=== PATIENT | female | born 1990 | race African-American/Black ===

== ENCOUNTER 2019-12-17 12:41 | Emergency (ER) | payer OTHER ==
[2019-12-17] MEDS ORDERED: hydrALAZINE 20 MG/ML VIAL SLOW IVP PRN (14:47)
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
== END 2019-12-17 13:40 | disposition admitted as inpatient to this hospital (09) ==
LOC: ERS 12:41
DX: O99.891 Other specified diseases and conditions complicating pregnancy (principal); R10.9 Unspecified abdominal pain; Z79.899 Other long term (current) drug therapy; Z3A.34 34 weeks gestation of pregnancy; V89.2XXA Person injured in unspecified motor-vehicle accident, traffic, initial encounter
CPT/HCPCS: 76815

== ENCOUNTER 2019-12-17 14:41 | Day surgery (SDC) | payer OTHER ==
[2019-12-17 15:50] VITALS: BMI 29.2
[2019-12-17] MEDS ORDERED: hydrALAZINE 20 MG/ML VIAL SLOW IVP PRN (16:08)
[2019-12-17] MEDS ORDERED: Acetaminophen 500 MG TAB PO SCH (16:15)
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
[2019-12-18] MEDS ORDERED: FLU VACC QS2020-21(6MOS UP)/PF 60 MCG/0.5 ML SYRINGE IM ONE (15:15)
== END 2019-12-17 17:30 | disposition home or self-care (01) ==
LOC: L&D/OP 14:41
PROVIDERS: ATTEND Obstetrics & Gynecology
DX: O99.891 Other specified diseases and conditions complicating pregnancy (principal); R10.30 Lower abdominal pain, unspecified; Z3A.34 34 weeks gestation of pregnancy
CPT/HCPCS: 36415; 76815; 85460

== ENCOUNTER 2020-01-18 01:48 | Day surgery (SDC) | payer OTHER ==
[2020-01-18 02:26] VITALS: BP 112/74; TEMP 98.3; BMI 28.3
[2020-01-18] MEDS ORDERED: hydrALAZINE 20 MG/ML VIAL SLOW IVP PRN (02:56)
--- NOTE | 2020-01-18 03:36 | PRG ---
DATE OF SERVICE: 01/18/2020 PRIMARY OB: Mirella Joy CNM. CHIEF COMPLAINT: Abdominal pain. HISTORY OF PRESENT ILLNESS: The patient is a 29-year-old G5, P4 female with an intrauterine at 38 weeks and 5 days, presenting to Labor and Delivery with abdominal pains that began at about 7 o'clock. She reports that they have become more frequent and intense. She denies leakage of fluid or vaginal bleeding. She has an appointment with Mirella later today. The patient denies fever, cough, headache, chest pain, shortness of breath. She does have nausea with vomiting almost every day in the morning, but is able to tolerate intake the rest of the day. She denies diarrhea. She does report constipation on occasion. She denies any new rashes, hip problems, knee problems, or muscle weakness. She reports some lower back pain that she has with activity and movement. She denies vaginal bleeding or leakage of fluid, urinary urgency or frequency. PAST MEDICAL HISTORY: Negative. PAST SURGICAL HISTORY: Negative. ALLERGIES: NO KNOWN DRUG ALLERGIES. MEDICATIONS: vitamins. OB HISTORY: Patient has had four term deliveries, vaginal. SOCIAL HISTORY: Denies drug, alcohol, tobacco use. OB LABS: Blood type is O positive. Antibody screen is negative. VDRL is negative on the 1st and 3rd trimester. Hepatitis B surface antigen is negative. HIV is negative in the 1st and 3rd trimester. GC and Chlamydia are negative. She is rubella immune. Sickle cell screening is negative. Diabetes screen 95. GBS is negative. REVIEW OF SYSTEMS: Per HPI. PHYSICAL EXAMINATION: VITAL SIGNS: Blood pressure is 112/74, heart rate of 88, respiratory rate of 18, temperature 98.3. GENERAL: She appears to be in no acute distress. She is alert, oriented, cooperative, and pleasant to interact with. HEAD: Normocephalic and atraumatic. LUNGS: Clear to auscultation bilaterally. HEART: Has a regular rate and rhythm. ABDOMEN: Gravid, soft, and nontender. EXTREMITIES: Nontender, nonedematous. She does have some SI joint tenderness to palpation. PELVIS: Cervical exam per nursing staff is 1, 50, and -3 station, which is unchanged from her last visit. heart tracing shows the fetus with a baseline in the 140s with moderate long-term variability, positive 15 x 15 accelerations, no decelerations. ASSESSMENT AND PLAN: The patient is a 29-year-old G5, P4 female with an intrauterine at 38 weeks and 5 days, presenting for concerns of labor. The patient has no evidence of active labor at this time. She does have an appointment with Mirella gamble today that we have encouraged that she keep. The fetus has a category 1 tracing and reactive NST. Mom is being discharged home. Job ID: [id number]
[2020-01-18] MEDS ORDERED: Ondansetron ODT 8 MG TAB SL PRN (03:51)
== END 2020-01-18 04:12 | disposition home health service (06) ==
LOC: L&D/OP 01:48
PROVIDERS: ATTEND Obstetrics & Gynecology
DX: O99.891 Other specified diseases and conditions complicating pregnancy (principal); R10.9 Unspecified abdominal pain; Z3A.38 38 weeks gestation of pregnancy
CPT/HCPCS: 99283; Q0162

== ENCOUNTER 2020-01-26 08:51 | Inpatient (IN) | payer OTHER ==
[2020-01-26] MEDS ORDERED: hydrALAZINE 20 MG/ML VIAL SLOW IVP PRN ×3 (09:06→20:42)
[2020-01-26 09:19] VITALS: BMI 26.4
[2020-01-26] MEDS ORDERED: NS / Oxytocin 40 units/1000ml 1,000 ML IV PRN (09:20)
[2020-01-26] MEDS ORDERED: HYDROcodone/Acetaminophen 5/325 mg Tablet PO PRN ×4 (09:20→20:42)
[2020-01-26] MEDS ORDERED: Carboprost 250 MCG/ML AMP IM PRN (09:20)
[2020-01-26] MEDS ORDERED: Butorphanol Tartrate 1 MG/ML VIAL SLOW IVP PRN (09:20)
[2020-01-26] MEDS ORDERED: Diphenoxylate HCl/Atropine Tablet PO PRN ×2 (09:20)
[2020-01-26] MEDS ORDERED: Ibuprofen 800 MG TAB PO PRN (09:20)
[2020-01-26] MEDS ORDERED: Lidocaine 1% (PF) 30 ML VIAL SC PRN (09:20)
[2020-01-26] MEDS ORDERED: Acetaminophen 500 MG TAB PO PRN (09:20)
[2020-01-26] MEDS ORDERED: Promethazine HCl 25 MG/ML VIAL IM PRN ×2 (09:20→12:02)
[2020-01-26] MEDS ORDERED: Misoprostol 200 MCG TAB PR PRN (09:20)
[2020-01-26] MEDS ORDERED: Methylergonovine 0.2 MG/ML VIAL IM PRN ×2 (09:20→20:42)
[2020-01-26] MEDS ORDERED: NS w/ Oxytocin 10 units 500 ML IV SCH (09:30)
[2020-01-26] MEDS ORDERED: Lactated Ringer's 1,000 ML IV SCH (09:30)
[2020-01-26] MEDS ORDERED: Fentanyl 4 mcg/Bup 0.1% Cadd 100 ML EPIDURAL SCH (10:30)
[2020-01-26 10:47] LABS: Hemoglobin 11.6 g/dL (12.0-16.0); Mean Corpuscular HGB CONC 34.7 g/dL (32.0-36.0); Mean Corpuscular Hemoglobin 30.2 pg (27.0-31.0); Mean Corpuscular Volume 87.1 fL (78.0-98.0); Mean Platelet Volume 6.2 fL (7.4-10.4); Platelet Count 233 thou/uL (130-400); RBC Distribution Width 13.4 % (11.5-14.5); Red Blood Cell (RBC) Count 3.82 mill/uL (4.20-5.40); White Blood Cell (WBC) Count 7.7 thou/uL (4.8-10.8)
[2020-01-26 11:22] LABS: HBSAg Index 0.18 S/CO (0-0.99); Hep B Surf Ag Non-Reactive S/CO (NonReactive); Syphilis Antibody Nonreactive (Nonreactive); Syphilis Antibody Index 0.03 S/CO (<1.00 Non-Reactive)
[2020-01-26] MEDS ORDERED: Acetaminophen 325 MG TAB PO PRN (12:02)
[2020-01-26] MEDS ORDERED: diphenhydrAMINE 50 MG/ML VIAL IVP PRN (12:02)
[2020-01-26] MEDS ORDERED: Ondansetron PF 4 MG/2 ML Vial IVP PRN ×2 (12:02→20:42)
[2020-01-26] MEDS ORDERED: Naloxone HCl 0.4 mg/ml Vial IVP PRN ×2 (12:02)
[2020-01-26] MEDS ORDERED: ePHEDrine 50 MG/ML VIAL SLOW IVP PRN (12:02)
[2020-01-26] MEDS ORDERED: Lactated Ringer's 500 ML IV PRN (12:02)
[2020-01-26] MEDS ORDERED: Communication Order-Pharmacy FS SCH (12:15)
[2020-01-26] MEDS ORDERED: Fentanyl 4 mcg/Bupivacaine 0.1% Cassette 100 ML EPIDURAL SCH (12:15)
[2020-01-26] MEDS: Ondansetron PF 4 MG/2 ML Vial IVP PRN ×2 (13:35→19:23)
--- NOTE | 2020-01-26 13:44 | PDOC.LDHP ---
Labor and Delivery H&P Chief complaint: contractions HPI: Patient arrives to hospital reports starting mahi sometime yesterday. She arrived to hosptial at 9am. She has been waiting it out at home. affirms movement. Denies LOF, VB. Current gestational age (weeks): 39 Due date: 01/27/20 Dating criteria: last menstrual period Grav: 5 Para: 4 OB History Details: 2007 37 weeks 2009 37 weeks 2011 37 weeks 2012 37 weeks Current complications: none Abnormal US findings: No Current medications: pre- vitamins Previous surgical history: none Allergies/Adverse Reactions: Allergies Allergy/AdvReac Type Severity Reaction Status Date / Time No Known Allergies Allergy Verified 12/17/19 15:52 Social history: none - Physical Exam Vital signs reviewed and normal: yes General: breathing through contractions Lungs: nonlabored breathing Abdomen: gravid Extremeties: no edema - Vaginal Exam cm dilated: 5 Effacement: 50% Station: -1 - OB Labs Blood type: O RH: positive Antibody Screen: negative HIV: negative RPR: negative HEPSAg: negative 1 hour GCT: negative GBS: negative Urine drug screen: negative Rubella: immune - Assessment L&D Assessment: term patient in labor - Plan Plan: admit to L&D -: AROM for augmentation Anticipate .
[2020-01-26 17:59] LABS: SARS-CoV-2 MS2 Positive; SARS-CoV-2 N Gene Negative; SARS-CoV-2 S Gene Negative; SARS-CoV-2 by NAA Not Detected (NotDetected); SARS-CoV-2 orf1ab Negative
--- NOTE | 2020-01-26 18:44 | PDOC.OPDEL ---
OB Operative/Delivery Note Delivery Dr/Surgeon: Light Pre-Delivery Diagnosis: active labor Procedure/Post Delivery Dx: spontaneous vaginal delivery Anesthesia: epidural - Findings A Sex: male - 1 min: 8 - 5 min: 9 - Additional Findings/Plan Placenta delivered: spontaneous Repaired Obstetrical Laceration: none Estimated blood loss: 56mL Post delivery plan: routine recovery
[2020-01-26] MEDS ORDERED: Misoprostol 200 MCG TAB VAG PRN (20:42)
[2020-01-26] MEDS ORDERED: Bisacodyl 10 MG SUPP PR PRN (20:42)
[2020-01-26] MEDS ORDERED: Benzocaine-Menthol 82.5 ML CAN TOP PRN (20:42)
[2020-01-26] MEDS ORDERED: NS / Oxytocin 40 units/1000ml 1,000 ML IV SCH (20:42)
[2020-01-26] MEDS ORDERED: Adacel (T-DAP) 0.5 ML SYRINGE IM ONE (20:42)
[2020-01-26] MEDS ORDERED: Milk Of Magnesia 30 ML UDCUP PO PRN (20:42)
[2020-01-26] MEDS: Ibuprofen 800 MG TAB PO SCH (21:21)
[2020-01-26] MEDS: Docusate Calcium (SURFAK) 240 MG CAP PO SCH (21:22)
[2020-01-27] MEDS: Ibuprofen 800 MG TAB PO SCH ×3 (05:16→21:07)
--- NOTE | 2020-01-27 08:08 | PDOC.PP ---
Post Progress Note Post Day #: 1 Subjective: pt is doing well. Bottle feeding. No concerns. desires staying until tomorrow am. PO intake tolerated: yes Flatus: yes Ambulation: yes Vital Signs (12 hours) Temp Pulse Resp BP 01/27/20 05:31 98.4 F 73 18 101/63 01/26/20 23:05 98.1 F 76 16 108/70 01/26/20 22:10 98.6 F 80 18 104/51 L 01/26/20 21:00 98.8 F 100 16 102/57 L Weight Weight 140 lb - Physical Examination General: NAD Respiratory: non-labored breathing Abdominal: no distention Skin: no rash Neurological: no gross focal deficits Psychiatric: A&Ox3, normal affect Result Diagrams: 01/26/20 09:28 Additional Labs: Post Labs Hep Bs Antigen Non-Reactive S/CO (NonReactive) 01/26/20 09:28 Blood Type O POSITIVE 01/26/20 09:28 (1) (spontaneous vaginal delivery) Code(s): O80 - ENCOUNTER FOR FULL-TERM UNCOMPLICATED DELIVERY Status: Acute - Assessment/Plan A: s/p at term with NML PPD exam P: discharge home tomorrow.
[2020-01-27] MEDS: Prenatal Vitamin 1 TAB PO SCH (08:16)
[2020-01-27] MEDS: Ferrous Sulfate 325 MG TAB PO SCH ×2 (08:16→15:29)
[2020-01-27] MEDS: Docusate Calcium (SURFAK) 240 MG CAP PO SCH ×2 (08:16→21:07)
[2020-01-27] MEDS ORDERED: FLU VACC QS2020-21(6MOS UP)/PF 60 MCG/0.5 ML SYRINGE IM ONE (09:30)
[2020-01-28] MEDS: Ibuprofen 800 MG TAB PO SCH (05:21)
--- NOTE | 2020-01-28 06:46 | PDOC.PP ---
Post Progress Note Post Day #: 2 Subjective: Doing well. No concerns. Desires to go home. PO intake tolerated: yes Flatus: yes Ambulation: yes Vital Signs (12 hours) Temp Pulse Resp BP 01/27/20 19:35 98.4 F 71 16 124/70 Weight Weight 63.503 kg - Physical Examination General: NAD Cardiovascular: no m/r/g, RRR Respiratory: clear to auscultation bilaterally, non-labored breathing Abdominal: + bowel sounds, lochia, no distention, appropriately TTP Extremities: negative homans (B) Neurological: no gross focal deficits Psychiatric: A&Ox3, normal affect Result Diagrams: 01/26/20 09:28 Additional Labs: Post Labs Hep Bs Antigen Non-Reactive S/CO (NonReactive) 01/26/20 09:28 Blood Type O POSITIVE 01/26/20 09:28 (1) (spontaneous vaginal delivery) Code(s): O80 - ENCOUNTER FOR FULL-TERM UNCOMPLICATED DELIVERY Status: Acute - Assessment/Plan PPD #2, s/p - Routine recovery. Pain is well controlled. Will d/c home with f/u in clinic. - Sent ibuprofen and pnv to pharmacy. Discussed plan with Dr. Pan attending. Rosalia NOONAN PGY2
[2020-01-28] MEDS: Docusate Calcium (SURFAK) 240 MG CAP PO SCH (09:07)
[2020-01-28] MEDS: Prenatal Vitamin 1 TAB PO SCH (09:07)
[2020-01-28] MEDS: Ferrous Sulfate 325 MG TAB PO SCH (09:07)
[2020-01-28 09:25] VITALS: BP 110/83; TEMP 98.6
== END 2020-01-28 13:35 | disposition home or self-care (01) | DRG 807 ==
LOC: L&D/OP 08:51 → L&D 09:20 → 3SW 01-27 00:08
PROVIDERS: ADMIT Student in an Organized Health Care Education/Training Program; ATTEND Student in an Organized Health Care Education/Training Program
PROC: 10E0XZZ Delivery of Products of Conception, External Approach (ICD-10-PCS; principal; 2020-01-26)
PROC: 10907ZC Drainage of Amniotic Fluid, Therapeutic from Products of Conception, Via Natural or Artificial Opening (ICD-10-PCS; 2020-01-26)
DX: O80 Encounter for full-term uncomplicated delivery (principal); Z37.0 Single live birth; Z3A.39 39 weeks gestation of pregnancy; Z20.828 Contact with and (suspected) exposure to other viral communicable diseases
CPT/HCPCS: 36415; 85027; 86780; 86850; 86900; 86901; 87340; 87635; J2405; J2590; U0003